=== PATIENT | male | born 1985 | race African-American/Black ===

== ENCOUNTER 2018-06-29 12:30 | Outpatient (CLI) | payer BC | END 2018-06-29 19:22 | disposition home or self-care (01) | LOC: RAD 12:30 | DX: S99.821A Other specified injuries of right foot, initial encounter (principal) ==

== ENCOUNTER 2018-10-14 11:32 | Outpatient (CLI) | payer OTHER | END 2018-10-14 22:12 | disposition home or self-care (01) | LOC: RAD 11:32 | DX: S97.82XA Crushing injury of left foot, initial encounter (principal) ==

== ENCOUNTER 2019-01-17 16:54 | Outpatient (CLI) | payer OTHER | END 2019-01-17 16:56 | disposition short-term general hospital (02) | LOC: AMB 16:54 | DX: S02.2XXA Fracture of nasal bones, initial encounter for closed fracture (principal); S09.8XXA Other specified injuries of head, initial encounter; M54.5 Low back pain; R07.89 Other chest pain; V23.4XXA Motorcycle driver injured in collision with car, pick-up truck or van in traffic accident, initial encounter; Y92.413 State road as the place of occurrence of the external cause | CPT/HCPCS: A0425; A0427 ==

== ENCOUNTER 2019-01-17 17:03 | Emergency (ER) | payer OTHER ==
[~2019-01-17] VITALS: Ht 182.9 cm; Wt 77.1 kg
[2019-01-17 17:03] VITALS: BP 142/102; TEMP 98
== END 2019-01-17 18:35 | disposition short-term general hospital (02) ==
LOC: ED 17:03
DX: S09.8XXA Other specified injuries of head, initial encounter (principal); V23.4XXA Motorcycle driver injured in collision with car, pick-up truck or van in traffic accident, initial encounter; Y92.89 Other specified places as the place of occurrence of the external cause
CPT/HCPCS: 99285; J7040